=== PATIENT | female | born 1970 | race African-American/Black ===

== ENCOUNTER 2017-06-26 13:18 | Emergency (ER) | payer SELFPAY ==
[2017-06-26] MEDS: ACETAMINOPHEN 650 MG/20.3 ML SOLUTION. PO (14:11)
[2017-06-26] MEDS: predniSONE 20 MG TABLET PO (14:11)
== END 2017-06-26 14:14 | disposition home or self-care (01) ==
LOC: ER 13:18
DX: J03.90 Acute tonsillitis, unspecified (principal); H66.93 Otitis media, unspecified, bilateral; I10 Essential (primary) hypertension
CPT/HCPCS: 99283; J7512

== ENCOUNTER 2017-11-29 11:34 | Observation (INO) | payer SELFPAY ==
[~2017-11-29] VITALS: Ht 170.2 cm; Wt 117.9 kg
[~2017-11-29 11:34] MED LIST: AMOX875T PO; PRED50TA PO
[2017-11-29] MEDS ORDERED: IV NORMAL SALINE 1000ML BAG 1,000 ML IV ONE (12:30)
--- NOTE | 2017-11-29 12:49 | PHYS DOC ---
Past Medical History Past Medical History: Anemia, Hypertension Past Surgical History: Appendectomy, Cholecystectomy Additional Past Surgical Histo: HERNAIA REPAIR WITH MESH, "BOWEL SURGERY" X2 Alcohol Use: Occasionally Drug Use: None Adult General Chief Complaint Chief Complaint: Congestion HPI HPI 47-year-old female presenting with dizziness for about a week that she describes as lightheadedness when she stands up. She has a history of anemia and high blood pressure. Her dizziness improves when she lays down or when she takes a shower. She also has an associated sore throat that started yesterday associated with a cough. Her cough is nonproductive. She denies fevers or chills. She denies abdominal pain. She has had a few episodes of nonbilious nonbloody emesis and does have a history of small bowel instructions. Past medical history anemia and hypertension Surgical history: History of appendectomy, cholecystectomy, hernia status post repair with mesh placement. 2 small bowel obstructions. She denies smoking, drinks occasionally and denies IV drug use. Review of systems is negative for chest pain shortness of breath fevers or chills. All other review of systems is negative unless otherwise noted in history of present illness. ED course: 47-year-old female presenting to the emergency department with sore throat lightheadedness cough and vomiting. On arrival she is afebrile with normal heart rate. Blood pressure is elevated. She did not take her medications this morning. Patient received 2 doses of IV labetalol and blood pressure remains over 200. Patient's hemoglobin is quite low. She reports previous was 9. CT shows no sign of obstruction . left adnexal mass seen. pt does not have abd or pelvic pain. follow up pcp. Pts bp continues to be elevated after labetalol. We will admit the patient to the hospital for further treatment and care. Dr. Cortés except the patient for admission. Impression significant anemia, significant refractory hypertension symptomatic, left adnexal mass. Review of Systems Review of Systems SEE ABOVE. Current Medications Current Medications Current Medications Medications (Trade) Dose Ordered Sig/Rambo Start Time Stop Time Status Last Admin Dose Admin Info (CONTRAST GIVEN -- Rx MONITORING) 1 each PRN DAILY PRN 11/29/17 14:00 12/01/17 13:59 Iohexol (Omnipaque 300 Mg/ml) 75 ml 1X ONCE 11/29/17 14:00 11/29/17 14:02 DC 11/29/17 14:17 75 ML Labetalol HCl (Normodyne Iv Push) 20 mg 1X ONCE 11/29/17 14:45 11/29/17 14:46 DC 11/29/17 14:50 20 MG Morphine Sulfate (Morphine Sulfate) 2 mg PRN Q2HR PRN 11/29/17 15:00 11/30/17 14:59 Sodium Chloride 1,000 ml @ 100 mls/hr Q10H 11/29/17 14:53 11/30/17 14:52 Allergies Allergies Allergies Coded Allergies Type Severity Reaction Last Updated Verified No Known Drug Allergies 06/26/17 No Physical Exam Physical Exam SEE ABOVE Constitutional: Well developed, well nourished, no acute distress, non-toxic appearance. HENT: Normocephalic, atraumatic, bilateral external ears normal, oropharynx moist, no oral exudates, nose normal. Patient has mild erythema of the posterior pharynx with mild swelling of the uvula. No peritonsillar abscess. Normal range of motion of the neck. No exudates. Eyes: PERRLA, EOMI, conjunctiva normal, no discharge. Neck: Normal range of motion, no tenderness, supple, no stridor. [] Cardiovascular:Heart rate regular rhythm, no murmur Lungs & Thorax: Bilateral breath sounds clear to auscultation [] Abdomen: Bowel sounds normal, soft, no tenderness, no masses, no pulsatile masses. no distension. no rebound tenderness or guarding. Skin: Warm, dry, no erythema, no rash. [] Back: No tenderness, no CVA tenderness. Extremities: No tenderness, no cyanosis, no clubbing, ROM intact, no edema. [] Neurologic: Alert and oriented X 3, normal motor function, normal sensory function, no focal deficits noted. Psychologic: Affect normal, judgement normal, mood normal. [] Current Patient Data Vital Signs Vital Signs Date Time Temp Pulse Resp B/P (MAP) Pulse Ox O2 Delivery O2 Flow Rate FiO2 11/29/17 14:50 68 217/93 11/29/17 12:03 98.4 18 99 Room Air 98.4 Lab Values Laboratory Tests Test 11/29/17 11:50 11/29/17 12:38 11/29/17 12:40 10/19/18 13:10 Urine Collection Type Unknown Urine Color Yellow Urine Clarity Clear Urine pH 7.0 Urine Specific [place] 1.010 Urine Protein Negative mg/dL (NEG-TRACE) Urine Glucose (UA) Negative mg/dL (NEG) Urine Ketones (Stick) Negative mg/dL (NEG) Urine Blood Negative (NEG) Urine Nitrite Negative (NEG) Urine Bilirubin Negative (NEG) Urine Urobilinogen Dipstick 0.2 mg/dL (0.2 mg/dL) Urine Leukocyte Esterase Large (NEG) Urine RBC 0 /HPF (0-2) Urine WBC 5-10 /HPF (0-4) Urine Squamous Epithelial Cells Few /LPF Urine Bacteria 0 /HPF (0-FEW) Urine Mucus Marked /LPF Influenza Type A Antigen Negative (NEGATIVE) Influenza Type B Antigen Negative (NEGATIVE) White Blood Count 4.5 x10^3/uL (4.0-11.0) Red Blood Count 4.43 x10^6/uL (3.50-5.40) Hemoglobin 7.4 g/dL (12.0-15.5) L Hematocrit 25.6 % (36.0-47.0) L Mean Corpuscular Volume 58 fL (79-100) L Mean Corpuscular Hemoglobin 17 pg (25-35) L Mean Corpuscular Hemoglobin Concent 29 g/dL (31-37) L Red Cell Distribution Width 19.4 % (11.5-14.5) H Platelet Count 233 x10^3/uL (140-400) Neutrophils (%) (Auto) 49 % (31-73) Lymphocytes (%) (Auto) 34 % (24-48) Monocytes (%) (Auto) 10 % (0-9) H Eosinophils (%) (Auto) 6 % (0-3) H Basophils (%) (Auto) 2 % (0-3) Neutrophils # (Auto) 2.2 x10^3uL (1.8-7.7) Lymphocytes # (Auto) 1.5 x10^3/uL (1.0-4.8) Monocytes # (Auto) 0.5 x10^3/uL (0.0-1.1) Eosinophils # (Auto) 0.3 x10^3/uL (0.0-0.7) Basophils # (Auto) 0.1 x10^3/uL (0.0-0.2) Toxic Granulation Mod Platelet Estimate Adequate (ADEQUATE) Polychromasia Slight Hypochromasia Mod Anisocytosis Slight Microcytosis Marked Sodium Level 139 mmol/L (136-145) Potassium Level 3.8 mmol/L (3.5-5.1) Chloride Level 103 mmol/L (98-107) Carbon Dioxide Level 27 mmol/L (21-32) Anion Gap 9 (6-14) Blood Urea Nitrogen 8 mg/dL (7-20) Creatinine 0.9 mg/dL (0.6-1.0) Estimated GFR (Cockcroft-Gault) 81.9 BUN/Creatinine Ratio 9 (6-20) Glucose Level 88 mg/dL (70-99) Calcium Level 8.8 mg/dL (8.5-10.1) Total Bilirubin 0.2 mg/dL (0.2-1.0) Aspartate Amino Transferase (AST) 12 U/L (15-37) L Alanine Aminotransferase (ALT) 16 U/L (14-59) Alkaline Phosphatase 59 U/L (46-116) Total Protein 7.3 g/dL (6.4-8.2) Albumin 3.2 g/dL (3.4-5.0) L Albumin/Globulin Ratio 0.8 (1.0-1.7) L Lipase 97 U/L (73-393) Serum Test, Qualitative Negative (NEG) Group A Streptococcus Rapid Negative (NEGATIVE) Laboratory Tests 11/29/17 12:40 Laboratory Tests 11/29/17 12:40 EKG EKG [] Radiology/Procedures Radiology/Procedures [] Course & Med Decision Making Course & Med Decision Making Pertinent Labs and Imaging studies reviewed. (See chart for details) [] Dragon Disclaimer Dragon Disclaimer This electronic medical record was generated, in whole or in part, using a voice recognition dictation system. Departure Departure Impression: Primary Impression: Dizzy Disposition: 09 ADMITTED INPATIENT Admitting Physician: Xie. Mooney Condition: STABLE Referrals: NO PCP (PCP) ANNE CRUZ MD Nov 29, 2017 12:49
[2017-11-29 13:00] LABS: BILIRUBIN,URINE NEGATIVE (NEG); CLARITY,URINE CLEAR; COLOR,URINE YELLOW; NITRITE,URINE NEGATIVE (NEG); PROTEIN,URINE NEGATIVE (NEG-TRACE); UROBILINOGEN,URINE 0.2 mg/dL (0.2 mg/dL)
[2017-11-29] MEDS ORDERED: LABETALOL 20 MG/4 ML DISP.SYRIN. IVP ONE ×2 (13:00→14:45)
[2017-11-29 13:04] LABS: CALCIUM 8.8 mg/dL (8.5-10.1); CREATININE 0.9 mg/dL (0.6-1.0); GFR 81.9; POTASSIUM 3.8 mmol/L (3.5-5.1)
[2017-11-29 13:10] LABS: ALBUMIN 3.2 g/dL (3.4-5.0); ALBUMIN/GLOBULIN RATIO 0.8 (1.0-1.7); TOTAL BILIRUBIN 0.2 mg/dL (0.2-1.0); TOTAL PROTEIN 7.3 g/dL (6.4-8.2)
[2017-11-29 13:12] LABS: INFLUENZA A PATIENT NEGATIVE (NEGATIVE); INFLUENZA B PATIENT NEGATIVE (NEGATIVE)
[2017-11-29 13:17] LABS: BASO # 0.1 x10^3/uL (0.0-0.2); BASO % 2 % (0-3); EOS # 0.3 x10^3/uL (0.0-0.7); EOS % 6 % (0-3); HEMATOCRIT 25.6 % (36.0-47.0); HEMOGLOBIN 7.4 g/dL (12.0-15.5); LYMPH # 1.5 x10^3/uL (1.0-4.8); LYMPH % 34 % (24-48); MEAN CORPUSCULAR HEMOGLOBIN 17 pg (25-35); MEAN CORPUSCULAR HGB CONC 29 g/dL (31-37); MEAN CORPUSCULAR VOLUME 58 fL (79-100); MONO # 0.5 x10^3/uL (0.0-1.1); MONO % 10 % (0-9); NEUT # 2.2 x10^3uL (1.8-7.7); NEUT % 49 % (31-73); PLATELET COUNT 233 x10^3/uL (140-400); RED BLOOD COUNT 4.43 x10^6/uL (3.50-5.40); RED CELL DISTRIBUTION WIDTH 19.4 % (11.5-14.5); WHITE BLOOD COUNT 4.5 x10^3/uL (4.0-11.0)
--- NOTE | 2017-11-29 13:29 | EKG ---
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
[2017-11-29 13:39] LABS: BACTERIA,URINE 0 /HPF (0-FEW); RBC,URINE 0 /HPF (0-2); SQUAMOUS EPITHELIAL CELL,UR FEW /LPF
[2017-11-29 13:48] LABS: PREG TEST PT QUAL NEGATIVE (NEG)
[2017-11-29 13:51] LABS: ANISOCYTOSIS SLIGHT; HYPOCHROMIA MOD; MICROCYTOSIS MARKED; PLT ESTIMATE ADEQUATE (ADEQUATE); POLYCHROMASIA SLIGHT; TOXIC GRANULATION MOD
[2017-11-29] MEDS ORDERED: IOHEXOL 300 MG/ML 100ML VIAL. IV ONE (14:00)
[2017-11-29] MEDS ORDERED: CONTRAST GIVEN. MC PRN (14:00)
--- NOTE | 2017-11-29 14:43 | RAD ---
CT of the abdomen and pelvis with IV contrast and without comparison for vomiting, dizziness, and congestion for one week. TECHNIQUE: Contiguous helical 5 mm axial images are obtained from the apex of the diaphragm to the pelvic floor after administration of IV contrast. Sagittal and coronal reformations are evaluated. FINDINGS: Contrast bolus timing is quite poor, owing to a positionally dependent IV, requiring modification of the injection technique. The lung bases are clear. Heart size within normal limits. There has been a prior cholecystectomy. The liver, spleen, pancreas, bilateral adrenal glands, and bilateral kidneys are all grossly unremarkable. The urinary bladder is fluid distended and grossly unremarkable. There is fluid within the uterus. A left adnexal mass measures 4.8 x 3.8 cm and demonstrates mixed cystic and solid character, likely reflecting a left ovary. This is poorly evaluated with the current modality, and could be better characterized with ultrasound if there is concern for ovarian pathology. The right ovary is not dimly seen. No free or loculated fluid collections are identified within the abdomen or pelvis. There is a 1 cm retroperitoneal lymph node on axial image #40, as well as several subcentimeter lymph nodes within the retroperitoneum. No suspicious adenopathy is seen however. There is inhomogeneous opacification of large and small bowel, with no evidence of bowel obstruction or focal bowel wall thickening. There are postsurgical changes in the right lower quadrant of the abdomen. No suspicious osteoblastic or osteolytic bone lesions are seen. Small inguinal lymph nodes are seen bilaterally. IMPRESSION: 1. 4.8 cm left adnexal cystic and solid mass most likely reflecting an enlarged ovary. Consider further evaluation with pelvic ultrasound for better characterization. 2. No other acute intra-abdominal abnormality. Electronically signed by: Cassius Oliveros MD (11/29/2017 2:39 PM) [id number]
[2017-11-29] MEDS ORDERED: IV NORMAL SALINE 1000ML BAG 1,000 ML IV SCH (14:53)
[2017-11-29] MEDS ORDERED: MORPHINE SULFATE 2 MG/ML VIAL. IV PRN ×2 (15:00→16:30)
[2017-11-29 16:00] VITALS: BP 221/112
[2017-11-29] MEDS ORDERED: DOCUSATE SODIUM 100 MG CAPSULE. PO PRN (16:30)
[2017-11-29] MEDS ORDERED: ACETAMINOPHEN 325 MG TABLET. PO PRN (16:30)
[2017-11-29] MEDS ORDERED: LABETALOL 20 MG/4 ML DISP.SYRIN. IVP PRN (16:30)
[2017-11-29] MEDS ORDERED: traMADol 50 MG TABLET PO PRN (16:30)
[2017-11-29] MEDS ORDERED: ONDANSETRON PF 4 MG/2 ML VIAL. IV PRN (16:30)
--- NOTE | 2017-11-29 16:43 | PDOC1 ---
History and Physical Date of Admission Date of Admission 11/29/17 Source Source: Chart review, Patient History of Present Illness History of Present Illness HPI HPI 47-year-old female presenting with dizziness for about a week. Pt knows she has a long history anemia, she said she has been followed hemoc before, but nobody could tell the etiology. She started to feel dizzy this week, lightheaded, feels more fatigue. no chest pain or sob. today Hb 7.3. She said her baseline is 7-8. last time Hb was 7.8, got 2u prbc up to 9. She feels like she will have anemia attack every 6-8months. BP >200 today. pT Said she takes hydralazine, amlodipine,clonidine and bp usually is ok. today didnot take meds since sore throat. Past Medical History Cardiovascular: HTN Heme/Onc: Anemia NOS Past Surgical History Past Surgical History: Appendectomy, Cholecystectomy Family History Family History: Hypertension Social History Smoke: No ALCOHOL: occassional Drugs: None Current Problem List Problem List Problems Medical Problems: (1) Dizzy Status: Acute Current Medications Current Medications Current Medications Medications (Trade) Dose Ordered Sig/Rambo Start Time Stop Time Status Last Admin Dose Admin Info (CONTRAST GIVEN -- Rx MONITORING) 1 each PRN DAILY PRN 11/29/17 14:00 12/01/17 13:59 Iohexol (Omnipaque 300 Mg/ml) 75 ml 1X ONCE 11/29/17 14:00 11/29/17 14:02 DC 11/29/17 14:17 75 ML Labetalol HCl (Normodyne Iv Push) 20 mg 1X ONCE 11/29/17 14:45 11/29/17 14:46 DC 11/29/17 14:50 20 MG Morphine Sulfate (Morphine Sulfate) 2 mg PRN Q2HR PRN 11/29/17 15:00 11/30/17 14:59 Sodium Chloride 1,000 ml @ 100 mls/hr Q10H 11/29/17 14:53 11/30/17 14:52 Allergies Allergies Allergies Coded Allergies Type Severity Reaction Last Updated Verified No Known Drug Allergies 06/26/17 No ROS Review of System CONSTITUTIONAL: No fever or chills EYES: No recent changes SKIN: No rash or itching CARDIOVASCULAR: No chest pain, syncope, palpitations, or edema RESPIRATORY: No SOB or cough GASTROINTESTINAL: No nausea, vomiting or abdominal pain NEUROLOGICAL: No headaches or weakness ENDOCRINE: No cold or heat intolerance GENITOURINARY: No urgency or frequency of urination MUSCULOSKELETAL: No back pain or joint pain LYMPHATICS: No enlarged lymph nodes PSYCHIATRIC: No anxiety or depression Physical Exam Physical Exam GEN.: No apparent distress. Alert and oriented. HEENT: Head is normocephalic, atraumatic NECK: Supple. LUNGS: Clear to auscultation. HEART: RRR, S1, S2 present. Peripheral pulses intact ABDOMEN: Soft, nontender. Positive bowel sounds. chronic mild diffuse tenderness. EXTREMITIES: Without any cyanosis. NEUROLOGIC: Normal speech, normal tone PSYCHIATRIC: Normal affect, normal mood. SKIN: No ulcerations Vitals Vitals Vital Signs Date Time Temp Pulse Resp B/P (MAP) Pulse Ox O2 Delivery O2 Flow Rate FiO2 11/29/17 14:50 68 217/93 11/29/17 12:03 98.4 18 99 Room Air 98.4 Labs Labs Laboratory Tests Test 11/29/17 11:50 11/29/17 12:38 11/29/17 12:40 11/29/17 13:10 Urine Collection Type Unknown Urine Color Yellow Urine Clarity Clear Urine pH 7.0 Urine Specific [place] 1.010 Urine Protein Negative mg/dL (NEG-TRACE) Urine Glucose (UA) Negative mg/dL (NEG) Urine Ketones (Stick) Negative mg/dL (NEG) Urine Blood Negative (NEG) Urine Nitrite Negative (NEG) Urine Bilirubin Negative (NEG) Urine Urobilinogen Dipstick 0.2 mg/dL (0.2 mg/dL) Urine Leukocyte Esterase Large (NEG) Urine RBC 0 /HPF (0-2) Urine WBC 5-10 /HPF (0-4) Urine Squamous Epithelial Cells Few /LPF Urine Bacteria 0 /HPF (0-FEW) Urine Mucus Marked /LPF Influenza Type A Antigen Negative (NEGATIVE) Influenza Type B Antigen Negative (NEGATIVE) White Blood Count 4.5 x10^3/uL (4.0-11.0) Red Blood Count 4.43 x10^6/uL (3.50-5.40) Hemoglobin 7.4 g/dL (12.0-15.5) Hematocrit 25.6 % (36.0-47.0) Mean Corpuscular Volume 58 fL (79-100) Mean Corpuscular Hemoglobin 17 pg (25-35) Mean Corpuscular Hemoglobin Concent 29 g/dL (31-37) Red Cell Distribution Width 19.4 % (11.5-14.5) Platelet Count 233 x10^3/uL (140-400) Neutrophils (%) (Auto) 49 % (31-73) Lymphocytes (%) (Auto) 34 % (24-48) Monocytes (%) (Auto) 10 % (0-9) Eosinophils (%) (Auto) 6 % (0-3) Basophils (%) (Auto) 2 % (0-3) Neutrophils # (Auto) 2.2 x10^3uL (1.8-7.7) Lymphocytes # (Auto) 1.5 x10^3/uL (1.0-4.8) Monocytes # (Auto) 0.5 x10^3/uL (0.0-1.1) Eosinophils # (Auto) 0.3 x10^3/uL (0.0-0.7) Basophils # (Auto) 0.1 x10^3/uL (0.0-0.2) Toxic Granulation Mod Platelet Estimate Adequate (ADEQUATE) Polychromasia Slight Hypochromasia Mod Anisocytosis Slight Microcytosis Marked Sodium Level 139 mmol/L (136-145) Potassium Level 3.8 mmol/L (3.5-5.1) Chloride Level 103 mmol/L (98-107) Carbon Dioxide Level 27 mmol/L (21-32) Anion Gap 9 (6-14) Blood Urea Nitrogen 8 mg/dL (7-20) Creatinine 0.9 mg/dL (0.6-1.0) Estimated GFR (Cockcroft-Gault) 81.9 BUN/Creatinine Ratio 9 (6-20) Glucose Level 88 mg/dL (70-99) Calcium Level 8.8 mg/dL (8.5-10.1) Total Bilirubin 0.2 mg/dL (0.2-1.0) Aspartate Amino Transf (AST/SGOT) 12 U/L (15-37) Alanine Aminotransferase (ALT/SGPT) 16 U/L (14-59) Alkaline Phosphatase 59 U/L (46-116) Total Protein 7.3 g/dL (6.4-8.2) Albumin 3.2 g/dL (3.4-5.0) Albumin/Globulin Ratio 0.8 (1.0-1.7) Lipase 97 U/L (73-393) Serum Test, Qualitative Negative (NEG) Group A Streptococcus Rapid Negative (NEGATIVE) Laboratory Tests Test 11/29/17 11:50 11/29/17 12:38 11/29/17 12:40 11/29/17 13:10 Urine Collection Type Unknown Urine Color Yellow Urine Clarity Clear Urine pH 7.0 Urine Specific [place] 1.010 Urine Protein Negative mg/dL (NEG-TRACE) Urine Glucose (UA) Negative mg/dL (NEG) Urine Ketones (Stick) Negative mg/dL (NEG) Urine Blood Negative (NEG) Urine Nitrite Negative (NEG) Urine Bilirubin Negative (NEG) Urine Urobilinogen Dipstick 0.2 mg/dL (0.2 mg/dL) Urine Leukocyte Esterase Large (NEG) Urine RBC 0 /HPF (0-2) Urine WBC 5-10 /HPF (0-4) Urine Squamous Epithelial Cells Few /LPF Urine Bacteria 0 /HPF (0-FEW) Urine Mucus Marked /LPF Influenza Type A Antigen Negative (NEGATIVE) Influenza Type B Antigen Negative (NEGATIVE) White Blood Count 4.5 x10^3/uL (4.0-11.0) Red Blood Count 4.43 x10^6/uL (3.50-5.40) Hemoglobin 7.4 g/dL (12.0-15.5) Hematocrit 25.6 % (36.0-47.0) Mean Corpuscular Volume 58 fL (79-100) Mean Corpuscular Hemoglobin 17 pg (25-35) Mean Corpuscular Hemoglobin Concent 29 g/dL (31-37) Red Cell Distribution Width 19.4 % (11.5-14.5) Platelet Count 233 x10^3/uL (140-400) Neutrophils (%) (Auto) 49 % (31-73) Lymphocytes (%) (Auto) 34 % (24-48) Monocytes (%) (Auto) 10 % (0-9) Eosinophils (%) (Auto) 6 % (0-3) Basophils (%) (Auto) 2 % (0-3) Neutrophils # (Auto) 2.2 x10^3uL (1.8-7.7) Lymphocytes # (Auto) 1.5 x10^3/uL (1.0-4.8) Monocytes # (Auto) 0.5 x10^3/uL (0.0-1.1) Eosinophils # (Auto) 0.3 x10^3/uL (0.0-0.7) Basophils # (Auto) 0.1 x10^3/uL (0.0-0.2) Toxic Granulation Mod Platelet Estimate Adequate (ADEQUATE) Polychromasia Slight Hypochromasia Mod Anisocytosis Slight Microcytosis Marked Sodium Level 139 mmol/L (136-145) Potassium Level 3.8 mmol/L (3.5-5.1) Chloride Level 103 mmol/L (98-107) Carbon Dioxide Level 27 mmol/L (21-32) Anion Gap 9 (6-14) Blood Urea Nitrogen 8 mg/dL (7-20) Creatinine 0.9 mg/dL (0.6-1.0) Estimated GFR (Cockcroft-Gault) 81.9 BUN/Creatinine Ratio 9 (6-20) Glucose Level 88 mg/dL (70-99) Calcium Level 8.8 mg/dL (8.5-10.1) Total Bilirubin 0.2 mg/dL (0.2-1.0) Aspartate Amino Transf (AST/SGOT) 12 U/L (15-37) Alanine Aminotransferase (ALT/SGPT) 16 U/L (14-59) Alkaline Phosphatase 59 U/L (46-116) Total Protein 7.3 g/dL (6.4-8.2) Albumin 3.2 g/dL (3.4-5.0) Albumin/Globulin Ratio 0.8 (1.0-1.7) Lipase 97 U/L (73-393) Serum Test, Qualitative Negative (NEG) Group A Streptococcus Rapid Negative (NEGATIVE) VTE Prophylaxis Ordered VTE Prophylaxis Devices: Yes VTE Pharmacological Prophylaxi: No Assessment/Plan Assessment/Plan symptomatic anemia chronic anemia wo clear etiology, microcytic HTN urgency morbid obesity mild malnutrition plan: resume amlodipine, hydralazine labetolol iv prn may need 1u PRBC transfusion, but pt wanted to sign AMA given family issues. SEA FAIRCHILD MD Nov 29, 2017 16:43
[2017-11-30] MEDS ORDERED: amLODIPine BESYLATE 10 MG TABLET PO SCH (09:00)
== END 2017-11-29 16:41 | disposition left against medical advice (07) ==
LOC: ER 11:34 → 5 SOUTH 15:09
PROVIDERS: ADMIT Internal Medicine; ATTEND Internal Medicine
DX: D64.9 Anemia, unspecified (principal); I10 Essential (primary) hypertension; I16.0 Hypertensive urgency; K56.609 Unspecified intestinal obstruction, unspecified as to partial versus complete obstruction; E66.01 Morbid (severe) obesity due to excess calories; E44.1 Mild protein-calorie malnutrition; R42 Dizziness and giddiness; R05 Cough; R03.0 Elevated blood-pressure reading, without diagnosis of hypertension; Z82.49 Family history of ischemic heart disease and other diseases of the circulatory system
CPT/HCPCS: 36415; 74177; 80053; 81001; 83690; 84703; 85025; 87070; 87804; 87880; 93005; 96361; 96374; 96375; 96376; 99285; G0378; J3490; J7030; Q9967; G0379

== ENCOUNTER 2018-07-13 13:33 | Emergency (ER) | payer SELFPAY ==
[~2018-07-13] VITALS: Ht 170.2 cm; Wt 117.9 kg
[2018-07-13] MEDS ORDERED: cloNIDine HCL 0.1 MG TABLET PO ONE (14:00)
[2018-07-13] MEDS ORDERED: KETOROLAC 30 MG/ML VIAL. IV ONE (14:00)
[2018-07-13 14:20] LABS: BILIRUBIN,URINE NEGATIVE (NEG); CLARITY,URINE CLEAR; COLOR,URINE YELLOW; NITRITE,URINE NEGATIVE (NEG); PROTEIN,URINE 30 mg/dL (NEG-TRACE)
[2018-07-13 14:28] LABS: BACTERIA,URINE FEW /HPF (0-FEW); RBC,URINE RARE /HPF (0-2); SQUAMOUS EPITHELIAL CELL,UR MOD /LPF; WBC,URINE RARE /HPF (0-4)
[2018-07-13 14:33] LABS: BASO % 2 % (0-3); EOS # 0.1 x10^3/uL (0.0-0.7); EOS % 3 % (0-3); HEMATOCRIT 29.5 % (36.0-47.0); HEMOGLOBIN 8.9 g/dL (12.0-15.5); LYMPH # 0.8 x10^3/uL (1.0-4.8); LYMPH % 28 % (24-48); MEAN CORPUSCULAR HEMOGLOBIN 20 pg (25-35); MEAN CORPUSCULAR HGB CONC 30 g/dL (31-37); MEAN CORPUSCULAR VOLUME 67 fL (79-100); MONO # 0.7 x10^3/uL (0.0-1.1); MONO % 24 % (0-9); NEUT # 1.2 x10^3uL (1.8-7.7); NEUT % 43 % (31-73); PLATELET COUNT 108 x10^3/uL (140-400); RED BLOOD COUNT 4.42 x10^6/uL (3.50-5.40); RED CELL DISTRIBUTION WIDTH 18.9 % (11.5-14.5); WHITE BLOOD COUNT 2.8 x10^3/uL (4.0-11.0)
[2018-07-13 14:33] LABS: BARBITURATES NEG (NEG); BENZODIAZEPINES NEG (NEG); CANNABINOIDS NEG (NEG); COCAINE NEG (NEG); METHADONE NEG (NEG); OPIATES NEG (NEG); PHENCYCLIDINE NEG (NEG)
[2018-07-13 14:35] LABS: AMPHETAMINE/METHAMPHETAMINE NEG (NEG)
[2018-07-13 14:51] LABS: CALCIUM 8.5 mg/dL (8.5-10.1); CREATININE 0.8 mg/dL (0.6-1.0); GFR 93.9; POTASSIUM 4.2 mmol/L (3.5-5.1)
[2018-07-13 15:05] LABS: ALBUMIN 3.2 g/dL (3.4-5.0); ALBUMIN/GLOBULIN RATIO 0.8 (1.0-1.7); TOTAL BILIRUBIN 0.2 mg/dL (0.2-1.0); TOTAL PROTEIN 7.1 g/dL (6.4-8.2)
[2018-07-13 15:07] LABS: % BASOS 3 % (0-3); % EOS 2 % (0-5); % LYMPHS 30 % (24-48); % MONOS 19 % (0-10); % SEGS 46 % (35-66); PLT ESTIMATE ADEQUATE (ADEQUATE)
[2018-07-13 15:08] LABS: ANISOCYTOSIS MOD; HYPOCHROMIA MOD; MICROCYTOSIS MARKED
--- NOTE | 2018-07-13 16:09 | PHYS DOC ---
Past Medical History Past Medical History: Anemia, Hypertension Past Surgical History: Appendectomy, Cholecystectomy Additional Past Surgical Histo: HERNAIA REPAIR WITH MESH, "BOWEL SURGERY" X2 Alcohol Use: Occasionally Drug Use: None Adult General Chief Complaint Chief Complaint: [facility] HPI Patient is a 47 year old female who presents with complaining of left lower quadrant pain. Patient complaining of constant left lower quadrant pain for 1 week that getting worse since yesterday as a sharp pain and rated her pain 7/10. Patient one episode of nausea yesterday and subjective chills. Patient denies radiation of pain, vomiting, diarrhea and constipation, urinary symptoms, vagin al bleeding or discharge, history of the same pain. Patient states her LMP was June 11 and she has irregular menstruation without heavy bleeding. Patient states she took [id number] ibuprofen without improvement of her pain. Patient had blood pressure more than 200/100 at arrival to ER and states she has history of hypertension but doesn't take medication because she doesn't like the side effec ts of medicine. Review of Systems Review of Systems Constitutional: Denies fever, reports chills [] Eyes: Denies change in visual acuity, redness, or eye pain [] HENT: Denies nasal congestion or sore throat [] Respiratory: Denies cough or shortness of breath [] Cardiovascular: No additional information not addressed in HPI [] GI: Reports abdominal pain, nausea, denies vomiting, bloody stools or diarrhea [] : Denies dysuria or hematuria [] Musculoskeletal: Denies back pain or joint pain [] Integument: Denies rash or skin lesions [] Neurologic: Denies headache, focal weakness or sensory changes [] Endocrine: Denies polyuria or polydipsia [] All other systems were reviewed and found to be within normal limits, except as documented in this note. Current Medications Current Medications Current Medications Medications (Trade) Dose Ordered Sig/Rambo Start Time Stop Time Status Last Admin Dose Admin Clonidine HCl (Catapres) 0.1 mg 1X ONCE 07/13/18 14:00 07/13/18 14:02 DC 07/13/18 14:23 0.1 MG Ketorolac Tromethamine (Toradol 30mg Vial) 30 mg 1X ONCE 07/13/18 14:00 07/13/18 14:02 DC 07/13/18 14:23 30 MG Allergies Allergies Allergies Coded Allergies Type Severity Reaction Last Updated Verified No Known Drug Allergies 06/26/17 No Physical Exam Physical Exam Constitutional: Well developed, well nourished, mild distress, non-toxic appearance. [] HENT: Normocephalic, atraumatic. Eyes: PERRLA, EOMI, conjunctiva normal, no discharge. [] Neck: Normal range of motion, no tenderness, supple, no stridor. [] Cardiovascular:Heart rate regular rhythm, no murmur [] Lungs & Thorax: Bilateral breath sounds clear to auscultation [] Abdomen: Bowel sounds normal, soft, left lower quadrant guarding, no tenderness, no masses, no pulsatile masses. [] Skin: Warm, dry, no erythema, no rash. [] Back: No tenderness, no CVA tenderness. [] Extremities: No tenderness, no cyanosis, no clubbing, ROM intact, no edema. [] Neurologic: Alert and oriented X 3, normal motor function, normal sensory function, no focal deficits noted. [] Psychologic: Affect normal, judgement normal, mood normal. [] Current Patient Data Vital Signs Vital Signs Date Time Temp Pulse Resp B/P (MAP) Pulse Ox O2 Delivery O2 Flow Rate FiO2 07/13/18 16:35 64 20 177/85 (115) 100 07/13/18 13:48 98.0 Room Air 98.0 Lab Values Laboratory Tests Test 07/13/18 13:39 07/13/18 13:47 07/13/18 14:16 Urine Collection Type Unknown Urine Color Yellow Urine Clarity Clear Urine pH 7.0 Urine Specific Stuart 1.025 Urine Protein 30 mg/dL (NEG-TRACE) Urine Glucose (UA) Negative mg/dL (NEG) Urine Ketones (Stick) Negative mg/dL (NEG) Urine Blood Negative (NEG) Urine Nitrite Negative (NEG) Urine Bilirubin Negative (NEG) Urine Urobilinogen Dipstick 1.0 mg/dL (0.2 mg/dL) Urine Leukocyte Esterase Negative (NEG) Urine RBC Rare /HPF (0-2) Urine WBC Rare /HPF (0-4) Urine Squamous Epithelial Cells Mod /LPF Urine Bacteria Few /HPF (0-FEW) Urine Mucus Mod /LPF Urine Opiates Screen Neg (NEG) Urine Methadone Screen Neg (NEG) Urine Barbiturates Neg (NEG) Urine Phencyclidine Screen Neg (NEG) Urine Amphetamine/Methamphetamine Neg (NEG) Urine Benzodiazepines Screen Neg (NEG) Urine Cocaine Screen Neg (NEG) Urine Cannabinoids Screen Neg (NEG) Urine Ethyl Alcohol Neg (NEG) POC Urine HCG, Qualitative Hcg negative (Negative) White Blood Count 2.8 x10^3/uL (4.0-11.0) L Red Blood Count 4.42 x10^6/uL (3.50-5.40) Hemoglobin 8.9 g/dL (12.0-15.5) L Hematocrit 29.5 % (36.0-47.0) L Mean Corpuscular Volume 67 fL (79-100) L Mean Corpuscular Hemoglobin 20 pg (25-35) L Mean Corpuscular Hemoglobin Concent 30 g/dL (31-37) L Red Cell Distribution Width 18.9 % (11.5-14.5) H Platelet Count 108 x10^3/uL (140-400) L Neutrophils (%) (Auto) 43 % (31-73) Lymphocytes (%) (Auto) 28 % (24-48) Monocytes (%) (Auto) 24 % (0-9) H Eosinophils (%) (Auto) 3 % (0-3) Basophils (%) (Auto) 2 % (0-3) Neutrophils # (Auto) 1.2 x10^3uL (1.8-7.7) L Lymphocytes # (Auto) 0.8 x10^3/uL (1.0-4.8) L Monocytes # (Auto) 0.7 x10^3/uL (0.0-1.1) Eosinophils # (Auto) 0.1 x10^3/uL (0.0-0.7) Basophils # (Auto) 0.0 x10^3/uL (0.0-0.2) Segmented Neutrophils % 46 % (35-66) Lymphocytes % 30 % (24-48) Monocytes % 19 % (0-10) H Eosinophils % 2 % (0-5) Basophils % 3 % (0-3) Platelet Estimate Adequate (ADEQUATE) Large Platelets Few Hypochromasia Mod Anisocytosis Mod Microcytosis Marked Target Cells Sodium Level 139 mmol/L (136-145) Potassium Level 4.2 mmol/L (3.5-5.1) Chloride Level 103 mmol/L (98-107) Carbon Dioxide Level 26 mmol/L (21-32) Anion Gap 10 (6-14) Blood Urea Nitrogen 8 mg/dL (7-20) Creatinine 0.8 mg/dL (0.6-1.0) Estimated GFR (Cockcroft-Gault) 93.9 BUN/Creatinine Ratio 10 (6-20) Glucose Level 93 mg/dL (70-99) Calcium Level 8.5 mg/dL (8.5-10.1) Total Bilirubin 0.2 mg/dL (0.2-1.0) Aspartate Amino Transferase (AST) 22 U/L (15-37) Alanine Aminotransferase (ALT) 38 U/L (14-59) Alkaline Phosphatase 62 U/L (46-116) Troponin I Quantitative < 0.017 ng/mL (0.000-0.055) Total Protein 7.1 g/dL (6.4-8.2) Albumin 3.2 g/dL (3.4-5.0) L Albumin/Globulin Ratio 0.8 (1.0-1.7) L Lipase 63 U/L (73-393) L Laboratory Tests 07/13/18 14:16 Laboratory Tests 07/13/18 14:16 EKG EKG [] Radiology/Procedures Radiology/Procedures [facility] [address], [place] [id number] IMAGING REPORT Signed PATIENT: JYOTI AREVALO ACCOUNT: [id number] : 1970 LOCATION: ER AGE: 47 SEX: F EXAM STATUS: REG ER ORD. PHYSICIAN: BERTHA BALDWIN MD REASON: left lower quadrant pain PROCEDURE: PELVIS ULTRASOUND Examination: Ultrasound uterus History: History of left lower quadrant pain Comparison: None available Findings: The uterus measures 7.1 x 6.9 x 5.7 cm. The endometrium measures 8.7 mm in thickness. The right ovary measures 3.3 x 2.9 x 1.9 cm. The left ovary measures 5.5 x 4.7 x 3.9 cm . There is a 2.1 cm heterogeneous echogenicity identified in the uterus probably a fibroid. There is a 2.5 cm cystic structure in the left ovary identified with the echogenicity is within could be a complex cyst or hemorrhagic cyst. Impression: 1. 2.5 cm cystic structure identified in the left ovary containing echogenicity within could be a hemorrhagic cyst or a complex cyst. Close interval follow-up examination is recommended. 2. A 2.1 cm heterogeneous echogenicity identified in the uterus probably a fibroid. DICTATED and SIGNED BY: JEM JACOB MD DATE: 07/13/18 5055 Course & Med Decision Making Course & Med Decision Making Pertinent Labs and Imaging studies reviewed. (See chart for details) Evaluation of patient in ER showed 47-year-old male patient with complaining of left lower quadrant pain that getting worse since yesterday. Patient had unremarkable physical exam except for elevation of blood pressure more than 200 with history of hypertension and without taking blood pressure medication. Labs showed white count of 2.8 with previous normal white count and hemoglobin of 8.5 with previous hemoglobin of 7.9. Patient states she has history of anemia and had negative workup for anemia by her physician. Blood pressure improved with improvement of pain. Pelvic ultrasound showed hemorrhagic left ovarian cyst. Patient was advised to take her blood pressure medication and follow up with her primary care physician for for couple of leukopenia and anemia. Dragon Disclaimer Dragon Disclaimer This electronic medical record was generated, in whole or in part, using a voice recognition dictation system. Departure Departure Impression: Primary Impression: Hemorrhagic cyst of left ovary Additional Impressions: Hypertensive emergency Anemia Leukopenia Uterine fibroid Disposition: HOME, SELF-CARE (161) Condition: IMPROVED Referrals: NO PCP (PCP) Patient Instructions: Anemia, FAQs, Form - Blood Pressure Record Sheet, How to Take Your Blood Pressure, [id number], Hypertension, Managing Your High Blood Pressure, Ovarian Cyst, Uterine Fibroid, [id number] Additional Instructions: Drink plenty of liquids Follow-up with your primary care physician in 3-5 days Return to ER if not getting better Continue home blood pressure medication Scripts Hydrocodone/Apap 5-325 (NORCO 5-325 TABLET) 1 Each Tablet 1 TAB PO PRN Q6HRS PRN for PAIN, #12 TAB 0 Refills Prov: BERTHA BALDWIN MD 07/13/18 Naproxen (NAPROSYN) 500 Mg Tablet 1 TAB PO BID for pain, #20 TAB Prov: BERTHA BALDWIN MD 07/13/18 Problem Qualifiers Additional Impressions: Anemia Anemia type: unspecified type Qualified Codes: D64.9 - Anemia, unspecified Leukopenia Leukopenia type: unspecified Qualified Codes: D72.819 - Decreased white blood cell count, unspecified BERTHA BALDWIN MD Jul 13, 2018 16:09
[2018-07-13] MEDS ORDERED: HYDR-3164 PO (16:21)
[2018-07-13] MEDS ORDERED: NAPR-683 PO (16:21)
[2018-07-13 16:35] VITALS: BP 177/85
== END 2018-07-13 16:35 | disposition home or self-care (01) ==
LOC: ER 13:33
DX: N83.202 Unspecified ovarian cyst, left side (principal); I16.1 Hypertensive emergency; I10 Essential (primary) hypertension; D64.9 Anemia, unspecified; D72.819 Decreased white blood cell count, unspecified; D25.9 Leiomyoma of uterus, unspecified; R11.0 Nausea; Z90.89 Acquired absence of other organs; Z90.49 Acquired absence of other specified parts of digestive tract
CPT/HCPCS: 36415; 76856; 80053; 80307; 81001; 81025; 83690; 84484; 85007; 85025; 96374; 99285; J1885

== ENCOUNTER 2018-10-03 15:32 | Emergency (ER) | payer SELFPAY ==
[~2018-10-03] VITALS: Ht 170.2 cm; Wt 108.9 kg
[~2018-10-03 15:32] MED LIST changes: +HYDR-3164 PO; +NAPR-683 PO
[2018-10-03] MEDS ORDERED: IV NORMAL SALINE 1000ML BAG 1,000 ML IV ONE (16:15)
[2018-10-03] MEDS ORDERED: KETOROLAC 15 MG/ML VIAL. IV ONE (16:15)
[2018-10-03] MEDS ORDERED: ONDANSETRON PF 4 MG/2 ML VIAL. IV ONE (16:15)
[2018-10-03 16:17] LABS: BASO % 1 % (0-3); EOS # 0.2 x10^3/uL (0.0-0.7); EOS % 6 % (0-3); HEMATOCRIT 26.9 % (36.0-47.0); HEMOGLOBIN 8.2 g/dL (12.0-15.5); LYMPH # 1.3 x10^3/uL (1.0-4.8); LYMPH % 40 % (24-48); MEAN CORPUSCULAR HEMOGLOBIN 19 pg (25-35); MEAN CORPUSCULAR HGB CONC 30 g/dL (31-37); MEAN CORPUSCULAR VOLUME 63 fL (79-100); MONO # 0.4 x10^3/uL (0.0-1.1); MONO % 13 % (0-9); NEUT # 1.3 x10^3/uL (1.8-7.7); NEUT % 40 % (31-73); PLATELET COUNT 188 x10^3/uL (140-400); RED BLOOD COUNT 4.25 x10^6/uL (3.50-5.40); RED CELL DISTRIBUTION WIDTH 17.3 % (11.5-14.5); WHITE BLOOD COUNT 3.2 x10^3/uL (4.0-11.0)
[2018-10-03 16:27] LABS: PROTHROMBIN TIME PATIENT 12.9 SEC (11.7-14.0)
[2018-10-03 16:44] LABS: CALCIUM 8.8 mg/dL (8.5-10.1); GFR 72.5; POTASSIUM 3.8 mmol/L (3.5-5.1)
[2018-10-03 16:46] LABS: ALBUMIN 3.1 g/dL (3.4-5.0); ALBUMIN/GLOBULIN RATIO 0.8 (1.0-1.7); MAGNESIUM 1.7 mg/dL (1.8-2.4); TOTAL BILIRUBIN 0.3 mg/dL (0.2-1.0); TOTAL PROTEIN 6.9 g/dL (6.4-8.2)
[2018-10-03 16:48] LABS: % BASOS 4 % (0-3); % LYMPHS 40 % (24-48); % SEGS 39 % (35-66); CREATINE KINASE 89 U/L (26-192)
[2018-10-03 16:50] LABS: % EOS 9 % (0-5); % MONOS 8 % (0-10); ANISOCYTOSIS SLIGHT; HYPOCHROMIA MARKED; MICROCYTOSIS MARKED; PLT ESTIMATE ADEQUATE (ADEQUATE); POLYCHROMASIA SLIGHT
--- NOTE | 2018-10-03 17:37 | RAD ---
Exam: Chest 2 views INDICATION: Weakness TECHNIQUE: Frontal and lateral views of the chest Comparisons: 10/03/2018 FINDINGS: The cardiomediastinal silhouette and pulmonary vessels are within normal limits. The lung and pleural spaces are clear. IMPRESSION: No acute cardiopulmonary process. Electronically signed by: Poornima Salinas MD (10/03/2018 5:34 PM) [facility]
[2018-10-03] MEDS ORDERED: ONDA4TAB12 PO (19:13)
--- NOTE | 2018-10-03 19:13 | PHYS DOC ---
Past Medical History Past Medical History: Anemia, Hypertension Past Surgical History: Appendectomy, Cholecystectomy Additional Past Surgical Histo: HERNAIA REPAIR WITH MESH, "BOWEL SURGERY" X2 Alcohol Use: Occasionally Drug Use: None Adult General Chief Complaint Chief Complaint: WEAKNESS/GENERALIZED HPI HPI Patient is a 47 year old [f__sex] who presents with [] Review of Systems Review of Systems Constitutional: Denies fever or chills [] Eyes: Denies change in visual acuity, redness, or eye pain [] HENT: Denies nasal congestion or sore throat [] Respiratory: Denies cough or shortness of breath [] Cardiovascular: No additional information not addressed in HPI [] GI: Denies abdominal pain, nausea, vomiting, bloody stools or diarrhea [] : Denies dysuria or hematuria [] Musculoskeletal: Denies back pain or joint pain [] Integument: Denies rash or skin lesions [] Neurologic: Denies headache, focal weakness or sensory changes [] Endocrine: Denies polyuria or polydipsia [] All other systems were reviewed and found to be within normal limits, except as documented in this note. Current Medications Current Medications Current Medications Medications (Trade) Dose Ordered Sig/Rambo Start Time Stop Time Status Last Admin Dose Admin Hydralazine HCl (Apresoline Inj) 20 mg 1X ONCE 10/03/18 19:15 10/03/18 19:16 Ketorolac Tromethamine (Toradol 15mg Vial) 15 mg 1X ONCE 10/03/18 16:15 10/03/18 16:16 DC 10/03/18 16:19 15 MG Magnesium Chloride (Mag Delay) 64 mg 1X ONCE 10/03/18 19:15 10/03/18 19:16 UNV Ondansetron HCl (Zofran) 4 mg 1X ONCE 10/03/18 16:15 10/03/18 16:16 DC 10/03/18 16:19 4 MG Sodium Chloride 1,000 ml @ 1,000 mls/hr 1X ONCE 10/03/18 16:15 10/03/18 17:14 DC 10/03/18 16:19 1,000 MLS/HR Allergies Allergies Allergies Coded Allergies Type Severity Reaction Last Updated Verified No Known Drug Allergies 06/26/17 No Physical Exam Physical Exam Constitutional: Well developed, well nourished, no acute distress, non-toxic appearance. [] HENT: Normocephalic, atraumatic, bilateral external ears normal, oropharynx moist, no oral exudates, nose normal. [] Eyes: PERRLA, EOMI, conjunctiva normal, no discharge. [] Neck: Normal range of motion, no tenderness, supple, no stridor. [] Cardiovascular:Heart rate regular rhythm, no murmur [] Lungs & Thorax: Bilateral breath sounds clear to auscultation [] Abdomen: Bowel sounds normal, soft, no tenderness, no masses, no pulsatile masses. [] Skin: Warm, dry, no erythema, no rash. [] Back: No tenderness, no CVA tenderness. [] Extremities: No tenderness, no cyanosis, no clubbing, ROM intact, no edema. [] Neurologic: Alert and oriented X 3, normal motor function, normal sensory function, no focal deficits noted. [] Psychologic: Affect normal, judgement normal, mood normal. [] Current Patient Data Vital Signs Vital Signs Date Time Temp Pulse Resp B/P (MAP) Pulse Ox O2 Delivery O2 Flow Rate FiO2 10/03/18 18:10 62 18 100 10/03/18 15:35 98.8 171/97 (121) Room Air 98.8 Lab Values Laboratory Tests Test 10/03/18 16:05 10/03/18 16:33 White Blood Count 3.2 x10^3/uL (4.0-11.0) L Red Blood Count 4.25 x10^6/uL (3.50-5.40) Hemoglobin 8.2 g/dL (12.0-15.5) L Hematocrit 26.9 % (36.0-47.0) L Mean Corpuscular Volume 63 fL (79-100) L Mean Corpuscular Hemoglobin 19 pg (25-35) L Mean Corpuscular Hemoglobin Concent 30 g/dL (31-37) L Red Cell Distribution Width 17.3 % (11.5-14.5) H Platelet Count 188 x10^3/uL (140-400) Neutrophils (%) (Auto) 40 % (31-73) Lymphocytes (%) (Auto) 40 % (24-48) Monocytes (%) (Auto) 13 % (0-9) H Eosinophils (%) (Auto) 6 % (0-3) H Basophils (%) (Auto) 1 % (0-3) Neutrophils # (Auto) 1.3 x10^3/uL (1.8-7.7) L Lymphocytes # (Auto) 1.3 x10^3/uL (1.0-4.8) Monocytes # (Auto) 0.4 x10^3/uL (0.0-1.1) Eosinophils # (Auto) 0.2 x10^3/uL (0.0-0.7) Basophils # (Auto) 0.0 x10^3/uL (0.0-0.2) Segmented Neutrophils % 39 % (35-66) Lymphocytes % 40 % (24-48) Monocytes % 8 % (0-10) Eosinophils % 9 % (0-5) H Basophils % 4 % (0-3) H Platelet Estimate Adequate (ADEQUATE) Giant Platelets Occ Polychromasia Slight Hypochromasia Marked Anisocytosis Slight Microcytosis Marked Prothrombin Time 12.9 SEC (11.7-14.0) Prothrombin Time INR 1.0 (0.8-1.1) Activated Partial Thromboplast Time 28 SEC (24-38) Sodium Level 141 mmol/L (136-145) Potassium Level 3.8 mmol/L (3.5-5.1) Chloride Level 102 mmol/L (98-107) Carbon Dioxide Level 27 mmol/L (21-32) Anion Gap 12 (6-14) Blood Urea Nitrogen 7 mg/dL (7-20) Creatinine 1.0 mg/dL (0.6-1.0) Estimated GFR (Cockcroft-Gault) 72.5 BUN/Creatinine Ratio 7 (6-20) Glucose Level 96 mg/dL (70-99) Calcium Level 8.8 mg/dL (8.5-10.1) Magnesium Level 1.7 mg/dL (1.8-2.4) L Total Bilirubin 0.3 mg/dL (0.2-1.0) Aspartate Amino Transferase (AST) 19 U/L (15-37) Alanine Aminotransferase (ALT) 13 U/L (14-59) L Alkaline Phosphatase 56 U/L (46-116) Creatine Kinase 89 U/L (26-192) Creatine Kinase MB (Mass) < 0.5 ng/mL (0.0-3.6) Creatine Kinase MB Relative Index % (0-4) Troponin I Quantitative < 0.017 ng/mL (0.000-0.055) Total Protein 6.9 g/dL (6.4-8.2) Albumin 3.1 g/dL (3.4-5.0) L Albumin/Globulin Ratio 0.8 (1.0-1.7) L Lipase 85 U/L (73-393) Lactic Acid Level 0.7 mmol/L (0.4-2.0) Laboratory Tests 10/03/18 16:05 Laboratory Tests 10/03/18 16:05 EKG EKG @1549 NSR at 70bpm, NO ST elevation, QRS 86, QT/QTc 408/443ms Radiology/Procedures Radiology/Procedures [] Course & Med Decision Making Course & Med Decision Making Pertinent Labs and Imaging studies reviewed. (See chart for details) [] Dragon Disclaimer Dragon Disclaimer This electronic medical record was generated, in whole or in part, using a voice recognition dictation system. Departure Departure Impression: Primary Impression: Weakness Additional Impressions: URI (upper respiratory infection) Hypertension Hypomagnesemia Disposition: 01 HOME, SELF-CARE Condition: STABLE Referrals: NO PCP (PCP) Patient Instructions: Hypertension, Bmns-[id number], Hypomagnesemia, Nausea, Adult, Dkbb-gl-Dytp, Upper Respiratory Infection, Adult, Sddf-[id number], Weakness, Gyrp-jc-Lysh Additional Instructions: Please take your blood pressure medication as prescribed. Scripts Ondansetron (ONDANSETRON ODT) 4 Mg Tab.rapdis 1 TAB PO PRN Q6-8HRS PRN for NAUSEA, #16 TAB Prov: GERARDO EUBANKS DO 10/03/18 Problem Qualifiers Additional Impressions: URI (upper respiratory infection) URI type: unspecified URI Qualified Codes: J06.9 - Acute upper respiratory infection, unspecified Hypertension Hypertension type: unspecified Qualified Codes: I10 - Essential (primary) hypertension GERARDO EUBANKS DO Oct 03, 2018 19:13
[2018-10-03] MEDS ORDERED: hydrALAZINE 20 MG/ML VIAL. IVP ONE (19:15)
[2018-10-03] MEDS ORDERED: MAGNESIUM CHLORIDE ER 64 MG TABLET.ER PO ONE (19:15)
[2018-10-03 20:32] VITALS: BP 192/84
--- NOTE | 2018-10-05 10:19 | EKG ---
[facility] [address] [place] [id number] Test Date: 2018-10-03 Test Time: 15:49:16 Pat Name: JYOTI AREVALO Department: Room: Gender: F [employer]: : 1970 Requested By: GERARDO EUBANKS Order Number: [id number] Reading MD: Segundo Broderick MD Measurements Intervals [place] Rate: 70 P: 44 SD: 198 QRS: 34 QRSD: 86 T: 84 QT: 408 QTc: 443 Interpretive Statements SINUS RHYTHM Electronically Signed On 10-05-2018 10:20:21 CDT by Segundo Broderick MD
== END 2018-10-03 20:41 | disposition home or self-care (01) ==
LOC: ER 15:32
DX: R53.1 Weakness (principal); J06.9 Acute upper respiratory infection, unspecified; I10 Essential (primary) hypertension; E83.42 Hypomagnesemia; Z90.89 Acquired absence of other organs; Z90.49 Acquired absence of other specified parts of digestive tract
CPT/HCPCS: 36415; 71046; 80053; 82553; 83605; 83690; 83735; 84484; 85007; 85025; 85610; 85730; 93005; 96374; 96375; 99285; J0360; J1885; J2405; J7030

== ENCOUNTER 2019-01-16 12:36 | Emergency (ER) | payer SELFPAY ==
[~2019-01-16] VITALS: Ht 170.2 cm; Wt 112.0 kg
[~2019-01-16 12:36] MED LIST changes: +ONDA4TAB12 PO
[2019-01-16] MEDS ORDERED: ONDANSETRON PF 4 MG/2 ML VIAL. IV ONE (13:00)
[2019-01-16] MEDS ORDERED: IV NORMAL SALINE 1000ML BAG 1,000 ML IV ONE (13:00)
--- NOTE | 2019-01-16 13:19 | RAD ---
EXAM: Chest, 2 views HISTORY: Dizziness. Weakness. COMPARISON: 10/03/2018 FINDINGS: 2 views of the chest are obtained. There is no infiltrate, pleural effusion or pneumothorax. The heart is normal in size. IMPRESSION: No acute pulmonary finding. Electronically signed by: Cecily Caputo MD (01/16/2019 1:16 PM) [facility]
--- NOTE | 2019-01-16 13:29 | PHYS DOC ---
Past Medical History Past Medical History: Anemia, Hypertension Past Surgical History: Appendectomy, Cholecystectomy Additional Past Surgical Histo: HERNAIA REPAIR WITH MESH, "BOWEL SURGERY" X2 Alcohol Use: Occasionally Drug Use: None Adult General Chief Complaint Chief Complaint: DENTAL PROBLEM HPI HPI Patient is a 48 year old AA female who presents to the emergency department with complaints of nausea, vomiting, generalized weakness for the last 5 days. Patient states she has vomited 3 times today. She denies any blood in her vomit. Patient denies any diarrhea, bloody stools, fever, cough, shortness of breath, headache, numbness, tingling, weakness, dysuria, hematuria, low back pain, or increased urinary frequency. Patient states that she had a dental abscess in her upper left quadrant that started draining pus yesterday. She states that her dental pain went away after the abscess began to drain. She currently denies any pain. Patient also denies any chest pain, palpitations, lower extremity swelling. All other ROS is neg unless otherwise noted in HPI. Review of Systems Review of Systems See Above Current Medications Current Medications Current Medications Medications (Trade) Dose Ordered Sig/Rambo Start Time Stop Time Status Last Admin Dose Admin Ondansetron HCl (Zofran) 4 mg 1X ONCE 01/16/19 13:00 01/16/19 13:03 DC 01/16/19 13:38 4 MG Sodium Chloride 1,000 ml @ 1,000 mls/hr 1X ONCE 01/16/19 13:00 01/16/19 13:59 DC 01/16/19 13:38 1,000 MLS/HR Allergies Allergies Allergies Coded Allergies Type Severity Reaction Last Updated Verified No Known Drug Allergies 06/26/17 No Physical Exam Physical Exam See Above Constitutional: Well developed, well nourished, no acute distress, non-toxic appearance. [] HENT: Normocephalic, atraumatic, bilateral external ears normal, oropharynx moist, no oral exudates, nose normal; area of erythema noted to upper left quadrant of mouth consistent with dental abscess, area is nonfluctuant, tender to palpation. [] Eyes: PERRLA, EOMI, conjunctiva normal, no discharge. [] Neck: Normal range of motion, no stridor. [] Cardiovascular:Heart rate regular rhythm Lungs & Thorax: Bilateral breath sounds clear to auscultation [] Abdomen: Bowel sounds normal, soft, no tenderness, no masses, no pulsatile masses. [] Skin: Warm, dry, no erythema, no rash. [] Back: No tenderness Extremities: No tenderness, ROM intact, no edema. [] Neurologic: Alert and oriented X 3, no focal deficits noted. [] Psychologic: Affect normal, judgement normal, mood normal. [] Current Patient Data Vital Signs Vital Signs Date Time Temp Pulse Resp B/P (MAP) Pulse Ox O2 Delivery O2 Flow Rate FiO2 01/16/19 12:59 98.2 81 16 172/85 (114) 100 Room Air 98.2 Lab Values Laboratory Tests Test 01/16/19 13:30 White Blood Count 2.8 x10^3/uL (4.0-11.0) L Red Blood Count 4.63 x10^6/uL (3.50-5.40) Hemoglobin 7.9 g/dL (12.0-15.5) L Hematocrit 27.3 % (36.0-47.0) L Mean Corpuscular Volume 59 fL (79-100) L Mean Corpuscular Hemoglobin 17 pg (25-35) L Mean Corpuscular Hemoglobin Concent 29 g/dL (31-37) L Red Cell Distribution Width 20.0 % (11.5-14.5) H Platelet Count 191 x10^3/uL (140-400) Neutrophils (%) (Auto) 36 % (31-73) Lymphocytes (%) (Auto) 38 % (24-48) Monocytes (%) (Auto) 18 % (0-9) H Eosinophils (%) (Auto) 7 % (0-3) H Basophils (%) (Auto) 1 % (0-3) Neutrophils # (Auto) 1.0 x10^3/uL (1.8-7.7) L Lymphocytes # (Auto) 1.1 x10^3/uL (1.0-4.8) Monocytes # (Auto) 0.5 x10^3/uL (0.0-1.1) Eosinophils # (Auto) 0.2 x10^3/uL (0.0-0.7) Basophils # (Auto) 0.0 x10^3/uL (0.0-0.2) Platelet Estimate Pending Prothrombin Time 13.0 SEC (11.7-14.0) Prothrombin Time INR 1.0 (0.8-1.1) Activated Partial Thromboplast Time 28 SEC (24-38) Sodium Level 140 mmol/L (136-145) Potassium Level 3.6 mmol/L (3.5-5.1) Chloride Level 103 mmol/L (98-107) Carbon Dioxide Level 27 mmol/L (21-32) Anion Gap 10 (6-14) Blood Urea Nitrogen 11 mg/dL (7-20) Creatinine 0.9 mg/dL (0.6-1.0) Estimated GFR (Cockcroft-Gault) 81.6 BUN/Creatinine Ratio 12 (6-20) Glucose Level 98 mg/dL (70-99) Calcium Level 8.9 mg/dL (8.5-10.1) Total Bilirubin 0.3 mg/dL (0.2-1.0) Aspartate Amino Transferase (AST) 59 U/L (15-37) H Alanine Aminotransferase (ALT) 158 U/L (14-59) H Alkaline Phosphatase 219 U/L (46-116) H Creatine Kinase 86 U/L (26-192) Creatine Kinase MB (Mass) < 0.5 ng/mL (0.0-3.6) Creatine Kinase MB Relative Index % (0-4) Troponin I Quantitative < 0.017 ng/mL (0.000-0.055) Total Protein 8.1 g/dL (6.4-8.2) Albumin 3.6 g/dL (3.4-5.0) Albumin/Globulin Ratio 0.8 (1.0-1.7) L Lipase 101 U/L (73-393) Laboratory Tests 01/16/19 13:30 Laboratory Tests 01/16/19 13:30 EKG EKG 1320- SR rate 72, no STEMI read by Dr. Medrano [] Radiology/Procedures Radiology/Procedures PROCEDURE: CHEST PA & LATERAL EXAM: Chest, 2 views HISTORY: Dizziness. Weakness. COMPARISON: 10/03/2018 FINDINGS: 2 views of the chest are obtained. There is no infiltrate, pleural effusion or pneumothorax. The heart is normal in size. IMPRESSION: No acute pulmonary finding.[] Course & Med Decision Making Course & Med Decision Making Pertinent Labs and Imaging studies reviewed. (See chart for details) Patient is a 48-year-old -[place] female who presented to emergency room with complaints of nausea, vomiting, and generalized weakness for the last 3 days. Patient states she had a dental abscess in the left upper quadrant that drained pus yesterday. She currently denies any dental pain. CBC revealed CBC revealed: WBC 2.8, hemoglobin 7.9, hematocrit 27.3; PT/INR WNL; CMP elect rolytes unremarkable, AST 59, ALT 158, Alk Phos 219, CK Normal, CK-MN normal, troponin negative. CXR and EKG unremarkable UA cancelled pt denies any urinary sx. Prescriptions written for penicillin VK, and naproxen. The patient was encouraged follow-up with a dentist for further treatment of her dental infection, follow-up with her primary care doctor next week about anemia. Return to the ER if symptoms worsen or she develops a fever. Patient verbalized an understanding of home care, medications, follow-up, and return to ED instructions and was in agreement with the plan of care. Dragon Disclaimer Dragon Disclaimer This electronic medical record was generated, in whole or in part, using a voice recognition dictation system. Departure Departure Impression: Primary Impression: Abscess, dental Additional Impressions: Generalized weakness Dentalgia Anemia Disposition: HOME, SELF-CARE Condition: STABLE Referrals: NO PCP (PCP) Patient Instructions: Dental Abscess, Dental Pain, [id number], Iron Deficiency Anemia, [id number] Additional Instructions: Fill the prescriptions and use them as directed. Follow up with a dentist about your dental abscess. See your primary care doctor next week for further evaluation of your anemia. Today your hemoglobin was 7.9 and hematocrit was 27.3. Return to the ER if your symptoms worsen. Scripts Penicillin V Potassium (PENICILLIN V POTASSIUM) 500 Mg Tablet 1 TAB PO QID for 10 Days, #40 TAB 0 Refills Prov: HALIE KAN ENERGY SCHEDULER 01/16/19 Naproxen (NAPROXEN) 500 Mg Tablet 1 TAB PO BID PRN for PAIN for 10 Days, #20 TAB 0 Refills Prov: HALIE KAN ENERGY SCHEDULER 01/16/19 Problem Qualifiers Additional Impressions: Anemia Anemia type: iron deficiency Iron deficiency anemia type: unspecified iron deficiency Qualified Codes: D50.9 - Iron deficiency anemia, unspecified HALIE KAN ENERGY SCHEDULER Jan 16, 2019 13:29
--- NOTE | 2019-01-16 13:44 | EKG ---
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
[2019-01-16 13:47] LABS: CALCIUM 8.9 mg/dL (8.5-10.1); CREATININE 0.9 mg/dL (0.6-1.0); GFR 81.6; POTASSIUM 3.6 mmol/L (3.5-5.1)
[2019-01-16 13:48] LABS: BASO % 1 % (0-3); EOS # 0.2 x10^3/uL (0.0-0.7); EOS % 7 % (0-3); HEMATOCRIT 27.3 % (36.0-47.0); HEMOGLOBIN 7.9 g/dL (12.0-15.5); LYMPH # 1.1 x10^3/uL (1.0-4.8); LYMPH % 38 % (24-48); MEAN CORPUSCULAR HEMOGLOBIN 17 pg (25-35); MEAN CORPUSCULAR HGB CONC 29 g/dL (31-37); MEAN CORPUSCULAR VOLUME 59 fL (79-100); MONO # 0.5 x10^3/uL (0.0-1.1); MONO % 18 % (0-9); NEUT % 36 % (31-73); PLATELET COUNT 191 x10^3/uL (140-400); RED BLOOD COUNT 4.63 x10^6/uL (3.50-5.40); WHITE BLOOD COUNT 2.8 x10^3/uL (4.0-11.0)
[2019-01-16 13:53] LABS: ALBUMIN 3.6 g/dL (3.4-5.0); ALBUMIN/GLOBULIN RATIO 0.8 (1.0-1.7); TOTAL BILIRUBIN 0.3 mg/dL (0.2-1.0); TOTAL PROTEIN 8.1 g/dL (6.4-8.2)
[2019-01-16 14:05] LABS: CREATINE KINASE 86 U/L (26-192)
[2019-01-16 15:01] VITALS: BP 187/82
[2019-01-16] MEDS ORDERED: PENI500T PO (15:26)
[2019-01-16] MEDS ORDERED: NAPR-514 PO (15:26)
[2019-01-16 17:24] LABS: ANISOCYTOSIS SLIGHT; HYPOCHROMIA MOD; OVALOCYTES OCC; PLT ESTIMATE ADEQUATE (ADEQUATE); SCHISTOCYTES OCC
== END 2019-01-16 15:40 | disposition home or self-care (01) ==
LOC: ER 12:36
DX: D50.9 Iron deficiency anemia, unspecified (principal); K04.7 Periapical abscess without sinus; R53.1 Weakness; K08.89 Other specified disorders of teeth and supporting structures; R11.2 Nausea with vomiting, unspecified; I10 Essential (primary) hypertension; Z90.89 Acquired absence of other organs; Z90.49 Acquired absence of other specified parts of digestive tract
CPT/HCPCS: 36415; 71046; 80053; 82553; 83690; 84484; 85025; 85610; 85730; 93005; 96361; 96374; 99285; J2405; J7030

== ENCOUNTER 2019-06-17 19:16 | Emergency (ER) | payer SELFPAY ==
[~2019-06-17] VITALS: Ht 170.2 cm; Wt 112.2 kg
[~2019-06-17 19:16] MED LIST changes: +NAPR-514 PO; +PENI500T PO
[2019-06-17 19:30] VITALS: BP 224/105
[2019-06-17] MEDS ORDERED: AMOX875T PO (19:50)
--- NOTE | 2019-06-17 19:51 | PHYS DOC ---
Past Medical History Past Medical History: Anemia, Hypertension Past Surgical History: Appendectomy, Cholecystectomy Additional Past Surgical Histo: HERNAIA REPAIR WITH MESH, "BOWEL SURGERY" X2 Smoking Status: Never Smoker Alcohol Use: Occasionally Drug Use: None General Adult EDM: Chief Complaint: MULTIPLE COMPLAINTS HPI: HPI: Patient is a 48 year old female who presents with sore throat and fever X1 day. Reports this is typical presentation for her when she has strep or tonsillitis. Review of Systems: Review of Systems: Constitutional:reports fever Eyes: Denies change in visual acuity. [] HENT: reports sore throat Denies nasal congestion Respiratory: Denies cough or shortness of breath. [] Cardiovascular: Denies chest pain or edema. [] GI: Denies abdominal pain, nausea, vomiting, bloody stools or diarrhea. [] : Denies dysuria. [] Musculoskeletal: Denies back pain or joint pain. [] Integument: Denies rash. [] Neurologic: Denies headache, focal weakness or sensory changes. [] Psychiatric: Denies depression or anxiety. [] Heart Score: Risk Factors: Risk Factors: DM, Current or recent (<one month) smoker, HTN, HLP, family history of CAD, obesity. Risk Scores: Score 0 - 3: 2.5% MACE over next 6 weeks - Discharge Home Score 4 - 6: 20.3% MACE over next 6 weeks - Admit for Clinical Observation Score 7 - 10: 72.7% MACE over next 6 weeks - Early Invasive Strategies Allergies: Allergies: Allergies Coded Allergies Type Severity Reaction Last Updated Verified No Known Drug Allergies 06/26/17 No Physical Exam: PE: Constitutional: Well developed, well nourished, no acute distress, non-toxic appearance. [] HENT: Normocephalic, atraumatic, bilateral external ears normal, oropharynx moist, no oral exudates, nose normal. [] +2 tonsils with mild erythema, midline uvula, trace exudate bilaterally. Eyes: PERRLA, EOMI, conjunctiva normal, no discharge. [] Neck: Normal range of motion, no tenderness, supple, no stridor. [] Cardiovascular:Heart rate regular rhythm, no murmur [] Lungs & Thorax: Bilateral breath sounds clear to auscultation [] Abdomen: Bowel sounds normal, soft, no tenderness, no masses, no pulsatile masses. [] Skin: Warm, dry, no erythema, no rash. [] Back: No tenderness, no CVA tenderness. [] Extremities: No tenderness, no cyanosis, no clubbing, ROM intact, no edema. [] Neurologic: Alert and oriented X 3, normal motor function, normal sensory function, no focal deficits noted. [] Psychologic: Affect normal, judgement normal, mood normal. [] EKG: EKG: [] Radiology/Procedures: Radiology/Procedures: [] Course & Med Decision Making: Course & Med Decision Making Pertinent Labs and Imaging studies reviewed. (See chart for details) This is a 48 yr old female with physical exam of tonsillitis and has a fever. D/c on Amoxicillin. [employer] Disclaimer: [employer] Disclaimer: This electronic medical record was generated, in whole or in part, using a voice recognition dictation system. Departure Departure Impression: Primary Impression: Acute tonsillitis Qualified Codes: J03.90 - Acute tonsillitis, unspecified Additional Impression: Fever Qualified Codes: R50.9 - Fever, unspecified Disposition: HOME, SELF-CARE Condition: STABLE Referrals: NO PCP (PCP) follow up with your doctor in 1-2 weeks Patient Instructions: Fever, Adult, [id number], Tonsillitis Additional Instructions: You have acute tonsillitis with fever. Please complete your antibiotics Take tylenol or motrin for fever Come back to the Ed if symptoms worsen Use salt water gurgles as needed Scripts Amoxicillin (AMOXICILLIN) 875 Mg Tablet 1 TAB PO BID, #20 TAB Prov: DANNY SIMON APRN 06/17/19 DANNY SIMON APRN June 17, 2019 19:50
== END 2019-06-17 19:55 | disposition home or self-care (01) ==
LOC: ER 19:16
DX: J03.90 Acute tonsillitis, unspecified (principal); R50.9 Fever, unspecified; L53.9 Erythematous condition, unspecified; I10 Essential (primary) hypertension; Z90.49 Acquired absence of other specified parts of digestive tract; Z90.89 Acquired absence of other organs; Z98.890 Other specified postprocedural states
CPT/HCPCS: 99283